=== PATIENT | female | born 1965 | race Caucasian/White ===

== ENCOUNTER 2016-10-12 08:55 | Day surgery (SDC) | payer OTHER ==
[~2016-10-12 08:55] MED LIST: Lactated Ringers 1,000 ML IV SCH; Midazolam 1 MG/ML 2 ML SDV ONE; Propofol 200 MG/20 ML SDV ONE; fentaNYL 100 MCG/2 ML SDV ONE
--- NOTE | 2016-10-12 09:25 | PCM.PREANE ---
Preanesthetic Assessment - Anesthesia/Transfusion/Family Hx Anesthesia History: Prior Anesthesia Without Reaction Family History of Anesthesia Reaction: No Transfusion History: No Prior Transfusion(s) Intubation History: Unknown - Review of Systems General: No Symptoms Pulmonary: No Symptoms Cardiovascular: No Symptoms Gastrointestinal: Constipation, Difficulty swallowing Neurological: No Symptoms Other: Reports: None - Physical Assessment O2 Sat by Pulse Oximetry: 98 Respiratory Rate: 16 Vital Signs: Last Vital Signs Temp 36.2 C 10/12/16 09:08 Pulse 75 10/12/16 09:08 Resp 16 10/12/16 09:08 BP 115/78 10/12/16 09:08 Pulse Ox 98 10/12/16 09:08 Height: 1.5 m Weight: 77.111 kg ASA Class: 2 Mental Status: Alert & Oriented x3 Airway Class: Mallampati = 2 Dentition: Reports: Normal Dentition Thyro-Mental Finger Breadths: 3 Mouth Opening Finger Breadths: 3 ROM/Head Extension: Full Lungs: Clear to auscultation, Normal respiratory effort Cardiovascular: Regular Rate, Regular Rhythm - Allergies Allergies/Adverse Reactions: Allergies Allergy/AdvReac Type Severity Reaction Status Date / Time diphenhydramine HCl Allergy Headache Verified 05/20/15 00:03 [From Benadryl] - Blood Blood Available: No - Anesthesia Plan Pre-Op Medication Ordered: None - Acknowledgements Anesthesia Type Planned: MAC Pt an Appropriate Candidate for the Planned Anesthesia: Yes Alternatives and Risks of Anesthesia Discussed w Pt/Guardian: Yes Pt/Guardian Understands and Agrees with Anesthesia Plan: Yes PreAnesthesia Questionnaire - Past Health History Medical/Surgical History: Denies Medical/Surgical History HEENT History: Reports: Allergic Rhinitis Cardiovascular History: Reports: Other (See Below) (h/o increased cholestero) Respiratory History: Reports: Asthma (very,very mild) Gastrointestinal History: Reports: GERD, Other (See Below) (dysphagia) Genitourinary History: Reports: UTI, Recurrent, Other (See Below) (HPV) RISK MGR History: Reports: Musculoskeletal History: Reports: None Neurological History: Reports: Migraines Psychiatric History: Reports: None Endocrine/Metabolic History: Reports: Obesity/BMI 30+ Hematologic History: Reports: None Immunologic History: Reports: None Oncologic (Cancer) History: Reports: None Dermatologic History: Reports: None - Infectious Disease History Infectious Disease History: Reports: None - Past Surgical History Head Surgeries/Procedures: Reports: None HEENT Surgical History: Reports: Tonsillectomy GI Surgical History: Reports: Cholecystectomy, EGD Female Surgical History: Reports: Tubal Ligation - SUBSTANCE USE Smoking Status *Q: Former Smoker Tobacco Use Within Last Twelve Months: No Second Hand Smoke Exposure: No Days Per Week of Alcohol Use: 2 Number of Drinks Per Day: 1 Total Drinks Per Week: 2 Recreational Drug Use History: No - HOME MEDS Home Medications: Home Meds Albuterol [Ventolin HFA] 2 puff INH Q4H PRN 04/18/15 [History] Budesonide/Formoterol [Symbicort 160-4.5 MCG] 2 inhalation INH ASDIRECTED PRN [History] Mag Carb/Al Hydrox/Alginic Ac [Gaviscon Liquid] 1 dose PO ASDIRECTED PRN [History] Fluticasone Propionate [Flonase Allergy Relief] 2 spray NASBOTH ASDIRECTED PRN 10/06/16 [History] - CURRENT (IN HOUSE) MEDS Current Meds: Current Medications Lactated Ringer's (Ringers, Lactated) 1,000 mls @ 125 mls/hr IV ASDIRECTED AZUCENA Discontinued Medications Fentanyl (Sublimaze) Confirm Administered Dose 100 mcg .ROUTE .STK-MED ONE Stop: 10/12/16 07:31 Midazolam HCl (Versed 1 Mg/Ml) Confirm Administered Dose 2 mg .ROUTE .STK-MED ONE Stop: 10/12/16 07:31 Propofol (Diprivan 20 Ml) Confirm Administered Dose 200 mg .ROUTE .STK-MED ONE Stop: 10/12/16 07:31
--- NOTE | 2016-10-12 10:23 | PCM.OPNOTE ---
- General Post-Op/Procedure Note Date of Surgery/Procedure: 10/12/16 Operative Procedure(s): egd w bx. colonoscopy Findings: see dict [id number] Pre Op Diagnosis: abd pain Post-Op Diagnosis: GERD and hemorrhoid Anesthesia Technique: Moderate sedation Primary Surgeon: Cristobal Ralph Pathology: egd bx random colon bx Complications: None Condition: Good
[2016-10-12 10:44] VITALS: BP 102/70
--- NOTE | 2016-10-12 13:37 | OR ---
SURGEON: Cristobal Ralph MD DATE OF PROCEDURE: 10/12/2016 PREOPERATIVE DIAGNOSIS: Abdominal pain. PROCEDURE PERFORMED: 1. Esophagogastroduodenoscopy with biopsy. 2. Colonoscopy w biopsy COMPLICATIONS: None. FINDINGS: EGD findings: 1. The patient is easily sedated with PHYSICAL SCIENCE PROFESSOR and Diprivan. The patient is soundly snoring. 2. The patient's proximal esophagus is free of disease. No stricture, varicosity, ulceration, or inflammation. Distal esophagus at GE junction at 40 shows moderate amount of salmon-colored change consistent with acid reflux. Stomach rugae is normal in appearance, large amount of bile. Antrum is a little bit inflamed. Duodenum is grossly normal in appearance. The scope was retrieved back to the stomach and retroflexed to look at the fundus of the stomach and the patient does not have any disease or hiatal hernia. Biopsy was done at antrum, body, and GE junction at 40, and sucked out air while scope pulling out. Colonoscopy findings: 1. The patient is easily sedated with PHYSICAL SCIENCE PROFESSOR and Diprivan. The patient is soundly snoring. 2. The patient's bowel prep is average with moderate amount of liquid stool, no semi-formed stool. 3. The patient's cecum indicated by ileocecal fold, one-to-one indentation, and appendiceal orifice. Light emittance is not observed and mucosa examined upon the scope pulling out. The patient does not have polyp, mass, growth, inflammation, stricture, ulceration, diverticulosis, none of those. The patient does not have external hemorrhoids. The patient has moderate internal hemorrhoid. The patient would benefit from repeat colonoscopy 10 years from today or if clinically indicated otherwise. Random biopsy was done for abdominal pain. DESCRIPTION OF PROCEDURE: EGD: The patient was taken to the endoscopy room, and with the PHYSICAL SCIENCE PROFESSOR, Diprivan was administered. A well-lubricated EGD scope was gently inserted through the oropharynx, down the esophagus, passing through the gastroesophageal junction, into the stomach. The mucosa was examined upon the passage. Any etiology will be noted. Once in the stomach, we continued to advance to the distal antrum, passed through the pylorus into the second portion of the duodenum. Again, the mucosa was examined for any abnormality and etiology. The scope was then retrieved back to the stomach and then retroflexed to look at the fundus of the stomach. If a biopsy was indicated, we will biopsy the antrum, body, and gastroesophageal junction. The air will be sucked out while the scope is retrieved to reduce the patient's discomfort. The patient tolerated the procedure well. There were no intraoperative complications. Dr. Ralph was present through the whole procedure. Prior to surgery, a time-out had been called, the patient identified, procedure identified and antibiotic administered. Colonoscopy: The patient was taken to the endoscopy room. A time out was called, patient identified, and procedure identified. Diprivan was then administrated. Patient went from awake to sleep, hearing doctor talking or door closing is normal. Perineum inspection and digital examination were then performed. A well-lubricated colonoscope was gently inserted through the rectum, advanced past the rectosigmoid junction, the descending colon, splenic flexure, transverse colon, hepatic flexure, ascending colon, arrived to the cecum. Cecum was identified as dictated in the finding. Then the scope was carefully withdrawn while attention was paid to the mucosal surface for any abnormality. random biopsy was performed for abd pain. Air will be sucked out during the scope withdrawal. At the rectum, retroflexed to examine any rectal diseases, fistula or hemorrhoids. Patient tolerated procedure well. There were no intraoperative complications, and Dr. Ralph was present throughout the whole procedure. MASTER / MANJU /[id number] MTDD
== END 2016-10-12 10:53 | disposition home or self-care (01) ==
LOC: MW.SDS 08:55
PROVIDERS: ATTEND Surgery
DX: K29.50 Unspecified chronic gastritis without bleeding (principal); K20.9 Esophagitis, unspecified; K64.8 Other hemorrhoids; J45.909 Unspecified asthma, uncomplicated; E78.00 Pure hypercholesterolemia, unspecified; K21.9 Gastro-esophageal reflux disease without esophagitis; Z90.49 Acquired absence of other specified parts of digestive tract; Z88.8 Allergy status to other drugs, medicaments and biological substances; Z98.890 Other specified postprocedural states; Z98.51 Tubal ligation status; Z87.891 Personal history of nicotine dependence
CPT/HCPCS: 43239; 45380; 88305; 88312; J2250; J3010; 00740; J2704